=== PATIENT | female | born 1970 | race Two or more races ===

== ENCOUNTER 2017-10-17 12:55 | Emergency (ER) | payer MEDICAID, OTHER ==
[~2017-10-17] VITALS: Ht 162.6 cm; Wt 62.0 kg
[2017-10-17] MEDS ORDERED: DIAZEPAM 5 MG TABLET PO ONE (14:00)
[2017-10-17] MEDS ORDERED: KETOROLAC 30 MG/1 ML IM ONE (14:00)
[2017-10-17] MEDS ORDERED: KETOROLAC 30 MG/1 ML ONE (14:02)
[2017-10-17] MEDS ORDERED: DIAZEPAM 5 MG TABLET ONE (14:03)
[2017-10-17 15:54] VITALS: BP 115/67
== END 2017-10-17 15:56 | disposition home or self-care (01) ==
LOC: ED 15:29
DX: S16.1XXA Strain of muscle, fascia and tendon at neck level, initial encounter (principal); S00.83XA Contusion of other part of head, initial encounter; W01.0XXA Fall on same level from slipping, tripping and stumbling without subsequent striking against object, initial encounter; Y93.89 Activity, other specified; Y92.009 Unspecified place in unspecified non-institutional (private) residence as the place of occurrence of the external cause; Y99.8 Other external cause status
CPT/HCPCS: 70450; 72125; 96372; 99284; J1885

== ENCOUNTER 2021-02-12 11:22 | Emergency (ER) | payer MEDICAID, OTHER ==
[~2021-02-12] VITALS: Ht 162.6 cm; Wt 61.1 kg
--- NOTE | 2021-02-12 12:05 | NUR ---
INTINAL CONTACT WITH PT: PT W/ C/O SWELLING TO BUE AND BLE, LIRIANO, AND NECK WITH PAIN FOR TWO MONTHS. PT WITH STEADY GAIT TO BATHROOM AND BACK TO BED. POSTIONED TO COMFORT AND ATTACHED TO MONITORS. VSS. KAY. DAUGHTER AT BEDSIDE. AWAITING ORDERS
--- NOTE | 2021-02-12 13:10 | NUR ---
DR. SERRANO TO BEDSIDE FOR EVALUTION. KILO. RAHUL.
--- NOTE | 2021-02-12 13:26 | NUR ---
PT RESTING IN BED. VSSugar. RAHUL.
[2021-02-12 13:39] LABS: BASOPHILS % (AUTO) 1 % (0-1); EOSINOPHILS % (AUTO) 14 % (1-7); LYMPHOCYTES % (AUTO) 17 % (22-44); MEAN CORPUSCULAR HEMOGLOBIN 32.4 pg (27.0-34.8); MEAN CORPUSCULAR HGB CONC 33.7 g/dL (32.4-35.8); MEAN PLATELET VOLUME 7.7 fL (7.4-10.4); MONOCYTES % (AUTO) 9 % (2-9); NEUTROPHILS % (AUTO) 59 % (42-75); PLATELET COUNT 345 x10^3/uL (130-400); RED BLOOD COUNT 3.98 x10^6/uL (3.82-5.3)
[2021-02-12 13:50] LABS: ALANINE AMINOTRANSFERASE 20 U/L (12-78); ALBUMIN 3.2 g/dL (3.4-5.0); ANION GAP 5 mmol/L (5-15); C-REACTIVE PROTEIN, QUANT 0.69 mg/dL (0.02-0.49); CALCIUM 8.5 mg/dL (8.5-10.1); CHLORIDE 107 mmol/L (98-107)
[2021-02-12 13:52] LABS: ALKALINE PHOSPHATASE 79 U/L (45-117); BILIRUBIN,TOTAL 0.4 mg/dL (0.2-1.0); TOTAL PROTEIN 6.9 g/dL (6.4-8.2)
[2021-02-12 14:41] VITALS: BP 111/74
--- NOTE | 2021-02-12 14:42 | NUR ---
PT RESTING IN BED. VSS. NADN. AWAITING RECHECK
== END 2021-02-12 15:46 | disposition home or self-care (01) ==
LOC: ED 15:30
DX: M79.10 Myalgia, unspecified site (principal); M54.2 Cervicalgia; M25.519 Pain in unspecified shoulder; R94.31 Abnormal electrocardiogram [ECG] [EKG]; Z86.718 Personal history of other venous thrombosis and embolism
CPT/HCPCS: 36415; 80053; 85025; 85651; 86140; 93005; 99284; J7512